=== PATIENT | male | born 1945 | race African-American/Black ===

== ENCOUNTER 2017-08-05 10:20 | Inpatient (IN) | payer OTHER ==
[~2017-08-05] VITALS: Ht 160 cm; Wt 62.0 kg
--- NOTE | ~2017-08-05 | EKG ---
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
[~2017-08-05 10:20] MED LIST: ACCUPRIL; ACCUPRIL40 MG PO; ACCURETIC 10-11 EACH PO; APIDRA SC; ASPIRIN 81 MG T81 MG PO; CYCLOBENZAPRINE5 MG PO; HYDROCODON-ACE1 EAC7; LANTUS SC; OXYCODONE HCL 55 MG PO; PREDNISONE 20 M20 MG PO; TAMSULOSIN HCL0.4 M1; ULTRAM 50MG TAB50 MG PO; ZOFRAN ODT4 MG PO
[2017-08-05 10:35] VITALS: BP 120/69
[2017-08-05 11:34] LABS: ABSOLUTE NEUTROPHILS 3.5 thou/uL (1.4-8.2); BASOPHILS 0.7 % (0.0-2.0); EOSINOPHILS 1.1 % (0.0-3.0); HEMATOCRIT 47.6 % (42.0-52.0); HEMOGLOBIN 15.5 gm/dL (14.0-18.0); LYMPHOCYTES 25.5 % (24.0-44.0); MCH 28.8 pg (26.0-34.0); MCHC 32.7 g/dL (28.0-37.0); MCV 88.1 fL (80.0-100.0); MONOCYTES 9.6 % (1.0-8.0); PLATELET COUNT 154 thou/uL (150-400); POLYS 63.1 % (36.0-66.0); RDW 13.9 % (10.5-14.5); WBC 5.5 thou/uL (4.0-11.0)
[2017-08-05 11:41] LABS: URINE BILIRUBIN NEGATIVE (Negative); URINE BLOOD NEGATIVE (Negative); URINE CLARITY CLEAR; URINE COLOR YELLOW; URINE GLUCOSE-RANDOM* 3+ (Negative); URINE KETONES 2+ (Negative); URINE LEUKOCYTES NEGATIVE (Negative); URINE NITRITE NEGATIVE (Negative); URINE PROTEIN (DIPSTICK) NEGATIVE (Negative); URINE SPECIFIC GRAVITY <= 1.005 (1.005-1.035); URINE UROBILINOGEN 0.2 E.U./dl (0.2-1.0)
[2017-08-05 12:12] LABS: ALBUMIN 3.5 g/dL (3.4-5.0); ANION GAP 16 mmol/L (7-16); BUN 36 mg/dL (7-18); CHLORIDE 96 mmol/L (98-107); CO2 23 mmol/L (21-32); CREATININE 1.6 mg/dL (0.7-1.3); DIRECT BILIRUBIN 0.2 mg/dL (<0.1-0.3); LIPASE 162 U/L (73-393); POTASSIUM 4.8 mmol/L (3.5-5.1); SGOT 8 U/L (15-37); SGPT 6 U/L (30-65); SODIUM 135 mmol/L (136-145); TOTAL BILIRUBIN 0.7 mg/dL (<0.1-1.0); TOTAL PROTEIN 7.3 g/dL (6.4-8.2); TROPONIN-I < 0.04 ng/mL (<0.06)
[2017-08-05 12:17] LABS: GLUCOSE 575 mg/dL (74-106)
[2017-08-05 13:33] VITALS: BP 120/69
[2017-08-05 16:00] VITALS: BP 105/45
[2017-08-05 16:20] VITALS: BP 119/63
[2017-08-05 20:00] VITALS: BP 111/55
[2017-08-06 04:00] VITALS: BP 107/66
[2017-08-06 06:21] LABS: HEMATOCRIT 42.2 % (42.0-52.0); MCH 28.8 pg (26.0-34.0); MCHC 33.2 g/dL (28.0-37.0); MCV 86.7 fL (80.0-100.0); RBC 4.86 mil/uL (4.50-6.00); RDW 13.8 % (10.5-14.5); WBC 4.2 thou/uL (4.0-11.0)
[2017-08-06 06:37] LABS: CALCIUM 10.1 mg/dL (8.5-10.1); CREATININE 1.1 mg/dL (0.7-1.3); POTASSIUM 3.7 mmol/L (3.5-5.1)
[2017-08-06 07:08] LABS: FOLIC ACID 11.4 ng/mL (8.6-58.9); TSH 0.801 uIU/mL (0.358-3.740)
[2017-08-06 07:45] VITALS: BP 101/50
[2017-08-06] MEDS ORDERED: HUMALOG100 UNIT/1 SUBQ (11:42)
[2017-08-06] MEDS ORDERED: LEVEMIR SUBQ (11:42)
[2017-08-06] MEDS ORDERED: CRESTOR40 MG PO (11:42)
[2017-08-06 12:00] VITALS: BP 121/63
[2017-08-06 16:45] VITALS: BP 136/73
[2017-08-06 19:29] VITALS: BP 119/62
[2017-08-07 08:37] VITALS: BP 122/60
[2017-08-07 16:00] VITALS: BP 133/96; BP 136/82; BP 144/76
[2017-08-07 20:00] VITALS: BP 128/80
[2017-08-08 04:00] VITALS: BP 115/70
[2017-08-08 05:58] LABS: ABSOLUTE NEUTROPHILS 1.1 thou/uL (1.4-8.2); BASOPHILS 0.6 % (0.0-2.0); EOSINOPHILS 2.4 % (0.0-3.0); HEMATOCRIT 42.4 % (42.0-52.0); LYMPHOCYTES 49.8 % (24.0-44.0); MCH 28.7 pg (26.0-34.0); MONOCYTES 10.8 % (1.0-8.0); PLATELET COUNT 108 thou/uL (150-400); POLYS 36.4 % (36.0-66.0); RBC 4.87 mil/uL (4.50-6.00); RDW 13.9 % (10.5-14.5)
[2017-08-08 06:17] LABS: CALCIUM 9.5 mg/dL (8.5-10.1); POTASSIUM 3.5 mmol/L (3.5-5.1)
[2017-08-08 08:33] VITALS: BP 95/44
[2017-08-08 16:55] VITALS: BP 94/56
[2017-08-08 20:00] VITALS: BP 102/52
[2017-08-09 07:00] VITALS: BP 126/67
[2017-08-09] MEDS ORDERED: ADULT LOW DOSE81 MG PO (12:53)
[2017-08-09] MEDS ORDERED: LACTULOSE20 GM/30 M PO (12:53)
== END 2017-08-09 16:30 | DRG 637 ==
LOC: ER 10:20 → 4N 12:03 → EROBS 12:03 → 4N 16:08 → SICU 08-08 18:37
PROVIDERS: Emergency Medicine; Hospitalist
DX: E11.00 Type 2 diabetes mellitus with hyperosmolarity without nonketotic hyperglycemic-hyperosmolar coma (NKHHC) (principal); E43 Unspecified severe protein-calorie malnutrition; N17.0 Acute kidney failure with tubular necrosis; E87.2 Acidosis; K59.00 Constipation, unspecified; F32.9 Major depressive disorder, single episode, unspecified; E86.0 Dehydration; G31.84 Mild cognitive impairment of uncertain or unknown etiology; I25.10 Atherosclerotic heart disease of native coronary artery without angina pectoris; Z87.891 Personal history of nicotine dependence; I25.2 Old myocardial infarction; Z95.1 Presence of aortocoronary bypass graft; Z79.4 Long term (current) use of insulin; Z79.899 Other long term (current) drug therapy
CPT/HCPCS: 10790; 15002

== ENCOUNTER 2018-12-09 17:56 | Emergency (ER) | payer OTHER ==
[~2018-12-09] VITALS: Ht 160 cm; Wt 72.6 kg
--- NOTE | ~2018-12-09 | EMS ---
[place] [address] EMS Patient Care Report Name: JOSE ORLANDO Room #: DEP DEBBI [place]#: [id number] Admission: 12/09/18 Attend Phys: Discharge: 12/10/18 Date of : 49 Report #: [id number] THIS REPORT FOR: //name// Report Transmitted: 12/11/2018 08:50 EMS Care Summary [place], [place]/[facility] Incident [id number] @ 12/09/2018 17:21 Incident Location [address] Patient JOSE ORLANDO Male, 73 Years 1945 Patient Address [id number] [place] [address] [address] [place] [phone] Patient History Diabetes,Hypertension, Patient Allergies No known allergies, Patient Medications None Reported, Chief Complaint NEAR SYNCOPE Disposition Transported No Lights/[place] Dispatch Reason Falls Transported To [facility] Narrative M28 DISPATCHED TO A ASSISTED LIVING NURSING FACILITY ON A REPORT OF A FALL. UPON ARRIVAL ON SCENE EMS FIND 71/M PT SITTING ON COUCH IN LIVING ROOM OF PT ROOM IN NO APPARENT DISTRESS. PT AOX4 STATED APPROXIMATELY 30 MINUTES PRIOR PT [address] [address] EMS Patient Care Report Name: JOSE ORLANDO Room #: DEP ER Adeel.#: [id number] Admission: 12/09/18 Attend Phys: Discharge: 12/10/18 Date of : 49 Report #: [id number] WAS WALKING WHEN HE BECAME SUDDENLY LIGHTHEADED AND DIZZY. PT HAD WHAT HE DESCRIBED A NEAR SYNCOPAL EPISODE. PT WAS ASSISTED BACK TO HIS RESIDENCE BY NURSING STAFF. NO LOC OR ACTUAL FALL REPORTED. PT STATED HE WAS IN NO PAIN. PT VITALS OBTAINED WHICH REVEALED PT WAS HYPOTENSIVE. PT BLOOD GLUCOSE (324) PT STATED HE ATE APPROXIMATELY AN HOUR AO AND HAD TAKEN 20 UNITS OF INSULIN. PT ASSISTED TO EMS STRETCHER BY EMS WHERE PT WAS PLACED IN POSITION OF COMFORT ON STRETCHER, WITH STRETCHER GUARDRAILS PLACED IN UPRIGHT LOCKED POSITION AND SEATBELTS FASTENED. PT MOVED ON EMS STRETCHER INTO AMBULANCE FOR FURTHER EVALUATION. PT TRENDING VITALS OBTAINED. IV ACCESS ATTEMPTED FOR PRECAUTIONARY MEASURES BUT UNSUCCESSFUL. PT CONDITION CONTINUALLY MONITORED EN ROUTE TO [facility]. NO NOTICEABLE CHANGES IN PT CONDITION DURING TRANSPORT TO RECEIVING FACILITY. UPON ARRIVAL TO [facility] PT MOVED INTO FACILITY ER ON EMS STRETCHER, WHERE PT WAS THEN ABLE TO SELF TRANSFER ONTO ER HOSPITAL BED WITHOUT INCIDENT. PT REPORT GIVEN TO RECEIVING NURSING STAFF AND TRANSFER OF PT CARE COMPLETED. Initial Vitals @17:38P: 68,R: 16,BP: 103/66,Pain: 0/10,GCS: 15,SpO2: 100,Revised Trauma: 12, @17:34P: 68,R: 16,BP: 99/63,Pain: 0/10,GCS: 15,Glucose: 342,SpO2: 98,Revised Trauma: 12, Assessments @17:32MENTAL:Person Oriented,Time Oriented,Place Oriented,Event Oriented,SKIN:HEENT:Neck/Airway: No Abnormalities,LUNG SOUNDS:General: Nausea,Left Upper: No Abnormalities,Right Upper: No Abnormalities,Left Lower: No Abnormalities,Right Lower: No Abnormalities,ABDOMEN:General: Nausea,Left Upper: No Abnormalities,Right Upper: No Abnormalities,Left Lower: No Abnormalities,Right Lower: No Abnormalities,PELVIS//GI:EXTREMITIES:Left Arm: No Abnormalities,Right Arm: No Abnormalities,Left Leg: No Abnormalities,Right Leg: No Abnormalities,PULSE:NEURO: Impression Syncope / Fainting Procedures @17:31ALS AssessmentResponse: UnchangedSucceeded@17:38Saline Lock 0cc (20 ga) Site: Antecubital-LeftResponse: UnchangedFailed@17:33StretcherResponse: Unchanged Timeline 17:18,Call Received 17:18,Dispatch Notified 17:21,Dispatched 17:21,En Route 17:27,On Scene 17:30,At Patient [facility] [address] [place] [address] EMS Patient Care Report Name: JOSE ORLANDO Room #: DEP Phu#: [id number] Admission: 12/09/18 Attend Phys: Discharge: 12/10/18 Date of : 49 Report #: [id number] 17:31,ALS Assessment,Response: UnchangedSucceeded, 17:33,Stretcher,Response: Unchanged 17:34,BP: 99/63 M,PULSE: 68,RR: 16 R,SPO2: 98 Ox,ETCO2: ,B,PAIN: 0,GCS: 15, 17:38,BP: 103/66 M,PULSE: 68,RR: 16 R,SPO2: 100 Ox,ETCO2: ,BG: ,PAIN: 0,GCS: 15, 17:38,Saline Lock 0cc 20 ga Site: Antecubital-Left,Response: UnchangedFailed, 17:41,Depart Scene 17:48,At Destination 18:06,Call Closed Disclaimer v1.1 Copyright 2019 [employer] This EMS Care Summary contains data elements from the applicable legal record (which may be displayed differently). It is designed to provide pertinent information for the following purposes: continuity of care, clinical quality, and state data reporting. The complete legal record is available to ED staff and administrators of the receiving hospital in [employer] Patient Tracker. All data is provided "as is."
[~2018-12-09 17:56] MED LIST changes: +ADULT LOW DOSE81 MG PO; +CRESTOR40 MG PO; +HUMALOG100 UNIT/1 SUBQ; +LACTULOSE20 GM/30 M PO; +LEVEMIR SUBQ
[2018-12-09] MEDS ORDERED: SENNA8.6 MG PO (18:03)
[2018-12-09] MEDS ORDERED: COLACE100 MG PO (18:03)
[2018-12-09] MEDS ORDERED: GABAPENTIN 100100 MG PO (18:03)
[2018-12-09] MEDS ORDERED: FLOMAX0.4 MG PO (18:04)
[2018-12-09 19:55] LABS: HEMATOCRIT 44.4 % (42.0-52.0); HEMOGLOBIN 14.9 gm/dL (14.0-18.0); MCH 29.5 pg (26.0-34.0); MCHC 33.6 g/dL (28.0-37.0); MCV 87.8 fL (80.0-100.0); PLATELET COUNT 126 thou/uL (150-400); RBC 5.06 mil/uL (4.50-6.00); RDW 13.9 % (10.5-14.5); WBC 6.6 thou/uL (4.0-11.0)
[2018-12-09 20:07] LABS: ANION GAP 5 mmol/L (7-16); BUN 29 mg/dL (7-18); CALCIUM 11.6 mg/dL (8.5-10.1); CHLORIDE 99 mmol/L (98-107); CO2 31 mmol/L (21-32); CREATININE 1.8 mg/dL (0.7-1.3); GLUCOSE 315 mg/dL (74-106); SODIUM 135 mmol/L (136-145)
[2018-12-09 20:16] LABS: ABSOLUTE NEUTROPHILS 4.2 thou/uL (1.4-8.2); LIPASE 73 U/L (73-393); MAGNESIUM 2.2 mg/dL (1.8-2.4); TROPONIN-I <0.06 ng/mL (<0.06)
[2018-12-09 22:23] VITALS: BP 105/48
[2018-12-09 22:41] LABS: URINE BILIRUBIN NEGATIVE (Negative); URINE BLOOD NEGATIVE (Negative); URINE CLARITY CLEAR; URINE COLOR YELLOW; URINE GLUCOSE-RANDOM* 3+ (Negative); URINE KETONES TRACE (Negative); URINE LEUKOCYTES-REFLEX NEGATIVE (Negative); URINE NITRITE-REFLEX NEGATIVE (Negative); URINE PROTEIN (DIPSTICK) NEGATIVE (Negative); URINE UROBILINOGEN 0.2 E.U./dl (0.2-1.0)
[2018-12-09] MEDS ORDERED: ZOFRAN ODT4 MG PO (23:14)
--- NOTE | 2018-12-10 10:46 | EKG ---
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1945 Requested By: hTeodore Noland Order Number: [id number] MD: Jagdeep Castillo Measurements Intervals [place] Rate: 65 P: 0 [place]: 145 QRS: -15 QRSD: 90 T: 155 QT: 392 QTc: 408 Interpretive Statements Sinus rhythm Probable left atrial enlargement LVH with secondary repolarization abnormality Inferior infarct, old Compared to ECG 08/05/2017 10:38:32 no significant change was found Electronically Signed On 12-10-2018 10:46:51 CDT by Jagdeep Castillo [email or web address] <ELECTRONICALLY SIGNED> By: Jagdeep Castillo MD, [facility] 12/10/18 1046 35 35 Jagdeep Castillo MD, [facility] /EPI
--- NOTE | 2018-12-10 10:47 | EKG ---
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 12/10/18 1047 57 57 Jagdeep Castillo MD, [facility] /EPI
== END 2018-12-10 | disposition home or self-care (01) ==
LOC: ER 17:56
PROVIDERS: Emergency Medicine
DX: R55 Syncope and collapse (principal); R11.0 Nausea; E11.9 Type 2 diabetes mellitus without complications; E78.5 Hyperlipidemia, unspecified; I10 Essential (primary) hypertension; Z79.4 Long term (current) use of insulin

== ENCOUNTER 2019-09-07 18:39 | Emergency (ER) | payer OTHER ==
[~2019-09-07] VITALS: Ht 162.6 cm; Wt 72.6 kg
[~2019-09-07 18:39] MED LIST changes: +COLACE100 MG PO; +FLOMAX0.4 MG PO; +GABAPENTIN 100100 MG PO; +SENNA8.6 MG PO
[2019-09-07] MEDS ORDERED: LEVEMIR FL100 UNIT/2 SUBQ (19:29)
[2019-09-07] MEDS ORDERED: TRAMADOL 50 MG50 MG PO (19:30)
[2019-09-07 20:46] VITALS: BP 102/67
== END 2019-09-07 20:55 | disposition home or self-care (01) ==
LOC: ER 18:39
DX: K59.00 Constipation, unspecified (principal); R42 Dizziness and giddiness; E11.9 Type 2 diabetes mellitus without complications; E78.5 Hyperlipidemia, unspecified; I10 Essential (primary) hypertension; Z79.899 Other long term (current) drug therapy; Z79.4 Long term (current) use of insulin; Z98.890 Other specified postprocedural states